=== PATIENT | male | born 1960 | race Two or more races ===

== ENCOUNTER 2022-06-23 15:14 | Emergency (ER) | payer MEDICAID ==
[~2022-06-23] VITALS: Ht 185.4 cm; Wt 77.1 kg
--- NOTE | 2022-06-23 15:46 | NUR ---
BIBS C/O SOB AND COUGH SINCE YESTERDAY, HX OF TONGUE AND THROAT CX SATTING AT 99% UPON ARRIVAL ON ROOM AIR, NO RESP DISTRESS NOTED. AWAITING MD ORDERS.
[2022-06-23 16:39] LABS: BASOPHILS % (AUTO) 0.3 % (0.0-2.0); EOSINOPHILS % (AUTO) 1.7 % (0.0-6.0); HEMATOCRIT 36 % (39-51); HEMOGLOBIN 11.8 g/dL (13.5-17.5); LYMPHOCYTES # (AUTO) 0.5 K/uL (0.8-4.8); LYMPHOCYTES % (AUTO) 6.7 % (20.0-44.0); MEAN CORPUSCULAR HGB CONC 33 g/dl (31.0-36.0); MEAN CORPUSCULAR VOLUME 83 fL (80-96); MONOCYTES # (AUTO) 0.8 K/uL (0.1-1.30); MONOCYTES % (AUTO) 9.4 % (2.0-12.0); NEUTROPHILS # (AUTO) 6.6 K/uL (1.8-8.9); NEUTROPHILS % (AUTO) 81.9 % (43.0-81.0); PLATELET COUNT (AUTO) 118 K/uL (150-450); WHITE BLOOD COUNT (AUTO) 8.1 K/uL (4.3-11.0)
[2022-06-23 16:56] LABS: CALCIUM, SERUM 9.6 mg/dL (8.5-10.1); CREATININE 0.9 mg/dL (0.6-1.3); POTASSIUM 3.9 mmol/L (3.5-5.1)
[2022-06-23] MEDS ORDERED: CT SWABBABLE VALVE TRANS SET 1 EA INFUS.SET MC ONE (17:25)
[2022-06-23] MEDS ORDERED: IV NS 0.9% 250 ML IV ONE (17:25)
[2022-06-23] MEDS ORDERED: IOHEXOL-300 100 ML VIAL IV ONE (17:25)
--- NOTE | 2022-06-23 17:42 | NUR ---
MIKALA ESTABLISHED R BLAIR 20G.
--- NOTE | 2022-06-23 19:31 | NUR ---
IV CANNULA REMOVED
--- NOTE | 2022-06-23 19:31 | NUR ---
Patient discharged to home in stable condition. Written and verbal after care instructions given. Patient verbalizes understanding of instruction.
[2022-06-23 19:32] VITALS: BP 132/81
== END 2022-06-23 19:32 | disposition home or self-care (01) ==
LOC: ER 15:30
DX: C78.00 Secondary malignant neoplasm of unspecified lung (principal)
CPT/HCPCS: 99285; 71270; 71045; 93005; 85025; 80048; 36415; 84484; 83880; J7050; Q9967